=== PATIENT | female | born 2000 | race Caucasian/White ===

== ENCOUNTER 2021-02-15 13:40 | Emergency (ER) | payer MEDICAID, SELFPAY ==
[~2021-02-15] VITALS: Ht 137.2 cm; Wt 68.4 kg
[2021-02-15] MEDS ORDERED: CEPH500T PO (14:02)
--- NOTE | 2021-02-15 15:00 | REP ---
INDICATION: 19 weeks , lack of movement COMPARISON: None. TECHNIQUE: Transabdominal obstetrical ultrasound with color Doppler evaluation. FINDINGS: Examination demonstrates a single live intrauterine in breech presentation. motion is identified by technologist. Placenta is noted posterior and grade 0 without evidence for placenta previa or abruption. Amniotic fluid volume is normal. Cervix measures approximately 3.3 cm in length and appears closed. Selected gestational age: 17 weeks 5 days with RAMILA 07/21/2021. FHR equals 152 beats per minute. CRISTAL: 9.4 cm (8.6-20.0) IMPRESSION: Single live intrauterine in breech presentation. <Electronically signed by Elias Mejia > 02/15/21 [id number]
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
[2021-02-15 16:06] VITALS: BP 118/73
== END 2021-02-15 16:10 | disposition home or self-care (01) ==
LOC: M ED 13:40
DX: O36.8122 Decreased fetal movements, second trimester, fetus 2 (principal); O9A.212 Injury, poisoning and certain other consequences of external causes complicating pregnancy, second trimester; S93.402D Sprain of unspecified ligament of left ankle, subsequent encounter; S52.614D Nondisplaced fracture of right ulna styloid process, subsequent encounter for closed fracture with routine healing; S52.501D Unspecified fracture of the lower end of right radius, subsequent encounter for closed fracture with routine healing; V89.2XXD Person injured in unspecified motor-vehicle accident, traffic, subsequent encounter; O26.892 Other specified pregnancy related conditions, second trimester; M54.5 Low back pain; Z3A.17 17 weeks gestation of pregnancy

== ENCOUNTER → 2021-02-21 | Outpatient (REF) | payer MEDICAID ==
[~2021-02-21] MED LIST: CEPH500T PO
[2021-02-21 13:50] LABS: HEMATOCRIT 26.9 % (36.0-47.0); HEMOGLOBIN 9.5 g/dl (12.0-15.5); MEAN CORPUSCULAR HEMOGLOBIN 28.5 pg (27.0-33.0); MEAN CORPUSCULAR HGB CONC 35.3 g/dl (32.0-36.5); MEAN CORPUSCULAR VOLUME 80.8 fl (80.0-96.0); PLATELET COUNT, AUTOMATED 349 10^3/uL (150-450); RED BLOOD COUNT 3.33 10^6/uL (4.00-5.40); WHITE BLOOD COUNT 8.1 10^3/uL (4.0-10.0)
[2021-02-21 15:50] LABS: HEPATITIS C VIRUS ABY INDEX < 0.0 INDEX (<0.8); HIV 1&2 SCREEN CENTAUR NEGATIVE (NEGATIVE)
== END ==
LOC: M PLALAB 10:06
PROVIDERS: ATTEND Advanced Practice Midwife
DX: Z34.02 Encounter for supervision of normal first pregnancy, second trimester (principal)

== ENCOUNTER → 2021-02-25 | Outpatient (CLI) | payer MEDICAID ==
--- NOTE | 2021-02-25 15:49 | REP ---
INDICATION: FX OF LOWER END OF R RADIUS, SUBS. COMPARISON: 02/15/2021 TECHNIQUE: Four views FINDINGS: Once again, overlying casting material obscures the bony detail. The previously described fracture is essentially unchanged a. the degree of callus formation if any cannot be determined due to the overlying cast. IMPRESSION: No significant change. Sign report <Electronically signed by Alphonso Tejada > 02/25/21 [id number]
== END ==
LOC: M SOG 13:43
PROVIDERS: ATTEND Orthopaedic Surgery Sports Medicine
DX: S52.591D Other fractures of lower end of right radius, subsequent encounter for closed fracture with routine healing (principal)

== ENCOUNTER → 2021-02-28 | Outpatient (CLI) | payer MEDICAID ==
--- NOTE | 2021-02-28 10:59 | REP ---
INDICATION: LEVEL II ANATOMY. COMPARISON: 02/15/2021. TECHNIQUE: Real-time sonographic evaluation of the gravid uterus performed. FINDINGS: Estimated gestational age is19 weeks 4 days, EDC 07/21/2021. Today's measurements indicate appropriate growth. Presentation: Transverse, head maternal left. Placenta posterior, grade 0, without evidence of placenta previa. heart rate is recorded at 144 beats per minute. Amniotic fluid is subjectively normal. Closed cervical length is measured at 3.6 cm. Biometry chart: BPD: 40 mm, 18 weeks 2 days, 14th percentile. HC: 157 mm, 18 weeks 4 days, 19th percentile AC: 138 mm, 19 weeks 1 days, 41st percentile Femur length: 29 mm, 19 weeks 0 days, 36th percentile HC to AC ratio: 1.14, normal range 1.06-1.25. Estimated weight: 270g, 18th percentile. anatomy: Cranium: Grossly normal Lateral Ventricles/Choroid Plexus: Grossly normal Posterior Fossa/Cerebellum: Grossly normal Nose/lips/profile: Not well seen due to position Four chamber heart: Not well seen due to position Right ventricular outflow tract: In not well seen due to position Left ventricular outflow tract: Not well seen due to position Left-sided stomach: Grossly normal Kidneys: Not well seen due to position Bladder: Grossly normal Cord Insertion: Grossly normal 3 vessel cord: Grossly normal Spine: Grossly normal IMPRESSION: Viable single intrauterine gestation as above. Limited evaluation of anatomy. <Electronically signed by Edgar Dorantes > 02/28/21 [id number]
== END ==
LOC: M RAD 09:58
PROVIDERS: ATTEND Advanced Practice Midwife
DX: Z34.02 Encounter for supervision of normal first pregnancy, second trimester (principal); Z3A.19 19 weeks gestation of pregnancy

== ENCOUNTER 2021-03-21 20:53 | Emergency (ER) | payer MEDICAID ==
[2021-03-21] MEDS ORDERED: FERR325T3 PO (21:00)
[2021-03-21] MEDS ORDERED: PRENTAB9 PO (22:08)
== END 2021-03-22 03:44 | disposition home or self-care (01) ==
LOC: M ED 23:54
DX: Z53.21 Procedure and treatment not carried out due to patient leaving prior to being seen by health care provider (principal)

== ENCOUNTER 2021-03-21 21:25 | Outpatient (CLI) | payer MEDICAID ==
[~2021-03-21] VITALS: Ht 137.2 cm; Wt 76.0 kg
[~2021-03-21 21:25] MED LIST changes: +FERR325T3 PO
[2021-03-21 21:56] VITALS: BP 125/59
[2021-03-21] MEDS ORDERED: PRENTAB9 PO (22:08)
[2021-03-21 22:15] LABS: APPEARANCE, URINE CLEAR (CLEAR); BACTERIA, URINE AUTO NEGATIVE (NEGATIVE); BILIRUBIN, URINE AUTO NEGATIVE (NEGATIVE); BLOOD, URINE BLOOD NEGATIVE (NEGATIVE); COLOR, URINE YELLOW (YELLOW); GLUCOSE, URINE (UA) AUTO NEGATIVE (NEGATIVE); KETONE, URINE AUTO NEGATIVE (NEGATIVE); LEUKOCYTE ESTERASE, URINE AUTO NEGATIVE (NEGATIVE); MUCUS, URINE SMALL (NEGATIVE); NITRITE, URINE AUTO NEGATIVE (NEGATIVE); PROTEIN, URINE AUTO NEGATIVE (NEGATIVE); RBC, URINE AUTO 0 /HPF (0-3); SPECIFIC GRAVITY URINE AUTO 1.012 (1.002-1.035); SQUAMOUS EPITHELIAL CELL UR AU 1 /HPF (0-6); UROBILINOGEN, URINE AUTO 0.2 mg/dL (0.0-2.0); WBC, URINE AUTO 0 /HPF (0-3)
--- NOTE | 2021-03-21 23:08 | IPNPDOC ---
Text Note Date of Service The patient was seen on 03/21/21. NOTE Outpatient 20yo G1 RAMILA 07/21/2021 presents @ 22w4d with ongoing complaints of central back pain radiating into groin with occasional "cramps". Denies LOF, bleeding. Resting in bed, no distress. Partner present FH via doppler 145-160's No UC on monitor Abdomen soft, gravid, no generalized tenderness appreciated with palpation UA WNL Renal sono WNL, no hydronephrosis or evidence of stone Reviewed with patient and partner round ligament discomfort and treatments. Rec support shoes with arch (currently wearing flip flops), maternity support belt, good body mechanics and increased hydration. Patient and partner verbalize understanding. Discharged home. Has appt this next week then will be moving to [place]. VS,Fishbone, I+O VS, Fishbone, I+O Vital Signs Date Time Temp Pulse Resp B/P (MAP) Pulse Ox O2 Delivery O2 Flow Rate FiO2 03/21/21 21:56 94 125/59 (81) Gila Solorzano CNM Mar 21, 2021 23:08
[2021-03-22 10:40] LABS: GC DNA AMPLIFICATION NEGATIVE (NEGATIVE)
--- NOTE | 2021-03-24 08:15 | REP ---
INDICATION: back and pelvic pain. Repeat dictation. Preliminary report is provided at the time of the exam by jo ann MARTIN. COMPARISON: None. TECHNIQUE: Urinary tract sonography. FINDINGS: Scanning at the level of the urinary bladder shows no abnormality. Renal cortical echogenicity pattern is normal bilaterally and contours are smooth. There is no evidence of hydronephrosis, cyst, mass, or calculus in either kidney. The right kidney measures 11.5 x 4.4 x 6.3 cm. Left renal dimensions are 12.9 x 5.4 x 5.7 cm. heart rate is recorded at 157 beats per minute. IMPRESSION: Normal urinary tract sonography. No evidence of hydronephrosis. <Electronically signed by Stas Tsai > 03/24/21 [id number]
== END 2021-03-21 23:03 | disposition home or self-care (01) ==
LOC: M LDO 21:25
PROVIDERS: ATTEND Advanced Practice Midwife
DX: O26.892 Other specified pregnancy related conditions, second trimester (principal); Z3A.22 22 weeks gestation of pregnancy; R25.2 Cramp and spasm; R10.2 Pelvic and perineal pain

== ENCOUNTER → 2021-03-24 | Outpatient (REF) | payer MEDICAID ==
[~2021-03-24] MED LIST changes: +PRENTAB9 PO
== END ==
LOC: M SFHCWAGY 13:24
PROVIDERS: ATTEND Advanced Practice Midwife
DX: Z36.89 Encounter for other specified antenatal screening (principal)